=== PATIENT | female | born 1985 | race Caucasian/White ===

== ENCOUNTER 2024-10-15 11:19 | Emergency (ER) | payer OTHER ==
[2024-10-15] MEDS ORDERED: Rabies Vaccine Human 2.5 UNITS VIAL ONE (12:13)
[2024-10-15] MEDS ORDERED: Rabies Immune Globulin/PF 300 UNITS/ML VIAL ONE (12:13)
[2024-10-15] MEDS ORDERED: Boostrix 0.5 ML (Tdap) VIAL (>/=7 yrs of age) ONE (12:14)
== END 2024-10-15 14:07 | disposition home or self-care (01) ==
LOC: ERS 11:19
DX: T63.891A Toxic effect of contact with other venomous animals, accidental (unintentional), initial encounter (principal); Z23 Encounter for immunization
CPT/HCPCS: 90375; 90471; 90472; 90675; 90715; 96372